=== PATIENT | female | born 1995 | race Caucasian/White ===

== ENCOUNTER 2016-10-17 09:39 | Emergency (ER) | payer OTHER ==
[~2016-10-17] VITALS: Ht 160 cm; Wt 57.6 kg
[2016-10-17] MEDS ORDERED: TYLE325T5 PO (09:50)
[2016-10-17] MEDS ORDERED: CIPR500T89 PO (09:52)
[2016-10-17] MEDS ORDERED: HYDR-3713 PO (09:52)
[2016-10-17] MEDS ORDERED: KETOROLAC 30 MG/ML VIAL (J1885) IV ONE (10:45)
[2016-10-17 10:58] LABS: CONTROL LINE UCG INT CTR LINE PRESENT
[2016-10-17 11:21] LABS: BASO % 0.6 % (0.0-1.0); EOS # 0.2 K/mm3 (0.0-0.50); EOS % 3.1 % (0.0-3.0); LARGE UNSTAINED CELL # 0.1 K/mm3 (0.0-0.4); LYMPH % 11.7 % (24.0-44.0); MEAN CORPUSCULAR HEMOGLOBIN 29.6 pg (27.0-33.0); MEAN CORPUSCULAR HGB CONC 32.2 g/dl (32.0-36.5); MEAN CORPUSCULAR VOLUME 91.8 fl (80.0-96.0); MONO # 0.3 K/mm3 (0.0-0.8); NEUTROPHILS # 6.4 K/mm3 (1.8-7.7); NEUTROPHILS % 79.6 % (36.0-66.0); PLATELET COUNT, AUTOMATED 597 k/mm3 (150-450)
[2016-10-17 11:38] LABS: ALBUMIN 3.6 GM/DL (3.2-5.2); ALBUMIN/GLOBULIN RATIO 0.73 (1.00-1.93); ALKALINE PHOSPHATASE 89 U/L (45-117); ALT/SGPT 23 U/L (12-78); ANION GAP 8 MEQ/L (8-16); AST/SGOT 9 U/L (15-37); BILIRUBIN,DIRECT < 0.1 MG/DL (0.0-0.2); BILIRUBIN,TOTAL 0.2 MG/DL (0.2-1.0); BLOOD UREA NITROGEN 12 MG/DL (7-18); CALCIUM LEVEL 9.2 MG/DL (8.5-10.1); CARBON DIOXIDE LEVEL 27 MEQ/L (21-32); CHLORIDE LEVEL 102 MEQ/L (98-107); CREATININE FOR GFR 0.58 MG/DL (0.55-1.02); GLUCOSE, FASTING 94 MG/DL (70-105); SODIUM LEVEL 137 MEQ/L (136-145); TOTAL PROTEIN 8.5 GM/DL (6.4-8.2)
[2016-10-17] MEDS ORDERED: ISOVUE-370 76% 100ML VIAL (Q9967) As Ordered ONE (12:10)
--- NOTE | 2016-10-17 13:00 | REP ---
CT abdomen and pelvis with IV contrast, without bowel contrast: Comparison is 12/07/2013. The visualized lung jaquez are unremarkable. The hepatic parenchyma, gallbladder, pancreas and spleen are normal size and unremarkable. The adrenals, kidneys and abdominal aorta are unremarkable. There is no bowel distension. The mesentery is unremarkable. Pelvis: The appendix is not distended measuring 6 mm in diameter and is otherwise unremarkable. There is a 4.3 cm right adnexal cyst. There is a 3.0 cm left adnexal cyst. There is no ascites. No pelvic adenopathy. The bladder is unremarkable. The uterus is retroverted but otherwise unremarkable. Impression: The gallbladder and appendix are unremarkable. There is a 4.3 cm right adnexal cyst and 3.0 cm left adnexal cyst. No ascites. The uterus is retroverted. The pancreas and spleen are unremarkable. There is no hydronephrosis. Kidneys are unremarkable. No ascites or adenopathy. No bowel distension. Otherwise, negative CT of the abdomen and pelvis. Signed by Korey García MD 10/17/2016 12:51 P
[2016-10-17 13:21] VITALS: BP 139/65
== END 2016-10-17 13:28 | disposition home or self-care (01) ==
LOC: M ED 10:01
DX: N83.02 Follicular cyst of left ovary (principal); N83.01 Follicular cyst of right ovary
CPT/HCPCS: 74177; 80048; 80076; 81001; 83690; 84703; 85025; 96374; 99282; J1885; Q9967

== ENCOUNTER → 2016-10-26 | Outpatient (CLI) | payer OTHER ==
[~2016-10-26] MED LIST: CIPR500T89 PO; HYDR-3713 PO; TYLE325T5 PO
[2016-10-26 12:32] LABS: PROLACTIN 5.6 NG/ML
[2016-10-26 12:54] LABS: FREE T4 0.94 NG/DL (0.78-1.33)
--- NOTE | 2016-10-27 03:48 | REP ---
Clinical: Right lower quadrant pain . Technique: Transabdominal pelvic ultrasound followed by transvaginal examination for better evaluation of the endometrium and adnexa with color Doppler evaluation of the ovaries. Findings: Bladder is unremarkable and measures 6.5 x 3.7 x 3.5 cm . Normal retroverted uterus measures 6.4 x 3.5 x 4.4 cm . The endometrial complex measures 4.8 mm thickness. No discrete uterine or endometrial abnormalities are appreciated. Bilateral ovaries are normal in appearance and vascularity without evidence for torsion. Right ovary measures 5.1 x 3.2 x 5.0 cm with a 3.3 cm hemorrhagic cyst ; R I = 0.56 . Left ovary measures 4.7 x 2.4 x 2.0 cm with 1.9 cm follicle ; R I = 0.55 . No pelvic fluid or adnexal mass lesions. Impression: 1. Right ovarian hemorrhagic cyst and left ovarian involuting follicle. 2. Normal uterus. Signed by Justin Pino MD 10/27/2016 03:40 A
== END ==
LOC: M RAD 11:26
PROVIDERS: ATTEND Nurse Practitioner Women's Health
DX: N92.6 Irregular menstruation, unspecified (principal)

== ENCOUNTER 2016-12-13 07:05 | Emergency (ER) | payer OTHER ==
[~2016-12-13] VITALS: Ht 160 cm; Wt 58.0 kg
[~2016-12-13 07:05] MED LIST changes: +CIPR-249 PO; -CIPR500T89 PO
[2016-12-13] MEDS ORDERED: MORPHINE 4 MG/ML 1ML SYRINGE IV ONE (08:00)
[2016-12-13] MEDS ORDERED: ONDANSETRON 4MG/2ML VIAL (J2405) IV ONE (08:00)
[2016-12-13] MEDS ORDERED: NS 1,000 ML IV ONE (08:00)
[2016-12-13 08:19] LABS: BASO % 0.3 % (0.0-1.0); EOS # 0.1 K/mm3 (0.0-0.50); EOS % 1.1 % (0.0-3.0); LARGE UNSTAINED CELL # 0.1 K/mm3 (0.0-0.4); LARGE UNSTAINED CELL % 0.7 % (0.0-4.0); LYMPH # 0.7 K/mm3 (1.5-6.5); LYMPH % 5.4 % (24.0-44.0); MEAN CORPUSCULAR HEMOGLOBIN 30.1 pg (27.0-33.0); MEAN CORPUSCULAR HGB CONC 33.5 g/dl (32.0-36.5); MEAN CORPUSCULAR VOLUME 89.9 fl (80.0-96.0); MONO # 0.4 K/mm3 (0.0-0.8); NEUTROPHILS # 10.4 K/mm3 (1.8-7.7); NEUTROPHILS % 89.5 % (36.0-66.0); PLATELET COUNT, AUTOMATED 376 k/mm3 (150-450); RED CELL DISTRIBUTION WIDTH 12.8 % (11.5-14.5); WHITE BLOOD COUNT 11.6 K/mm3 (4.0-10.0)
[2016-12-13 08:33] LABS: CONTROL LINE HCG INT CTR LINE PRESENT
[2016-12-13 08:40] LABS: ALBUMIN 3.8 GM/DL (3.2-5.2); ALBUMIN/GLOBULIN RATIO 0.93 (1.00-1.93); ALKALINE PHOSPHATASE 80 U/L (45-117); ALT/SGPT 14 U/L (12-78); AMYLASE 37 U/L (25-115); ANION GAP 8 MEQ/L (8-16); AST/SGOT 8 U/L (15-37); BILIRUBIN,DIRECT < 0.1 MG/DL (0.0-0.2); BILIRUBIN,TOTAL 0.3 MG/DL (0.2-1.0); BLOOD UREA NITROGEN 7 MG/DL (7-18); CALCIUM LEVEL 9.3 MG/DL (8.5-10.1); CARBON DIOXIDE LEVEL 23 MEQ/L (21-32); CHLORIDE LEVEL 105 MEQ/L (98-107); GLUCOSE, FASTING 123 MG/DL (70-105); POTASSIUM SERUM 3.7 MEQ/L (3.5-5.1); SODIUM LEVEL 136 MEQ/L (136-145); TOTAL PROTEIN 7.9 GM/DL (6.4-8.2)
[2016-12-13] MEDS ORDERED: ISOVUE-370 76% 100ML VIAL (Q9967) As Ordered ONE (09:20)
--- NOTE | 2016-12-13 10:02 | REP ---
CT ABDOMEN AND PELVIS WITH IV CONTRAST: TECHNIQUE: Axial contrast enhanced images from the lung bases to the pubic symphysis using 100 mL Isovue 370 intravenous contrast material with multiplanar reformations. Visualized lung bases are clear. Liver, spleen, adrenals, pancreas and kidneys are normal in appearance. There is no abdominal aortic aneurysm. There is no free air. There is diffuse thickening of the right colon with mild surrounding streaky inflammatory change. There are mildly enlarged lymph nodes just medial to the right colon, the largest 1.3 cm in short axis dimension. The appendix is normal. No pelvic mass is seen. There is mild free fluid in the pelvis. IMPRESSION: Diffuse thickening of the right colon with mild adjacent mesenteric adenopathy. Normal appendix. Mild free fluid in the pelvis. Findings compatible with right sided colitis. Signed by Korey Pendleton MD 12/13/2016 08:17 P
[2016-12-13] MEDS ORDERED: ZOFR4TAB3 PO (10:35)
[2016-12-13] MEDS ORDERED: NORCOTAB PO (10:35)
[2016-12-13] MEDS ORDERED: NORCO, ANEXSIA 5/325MG TABLET (HYDROcodone/ACETAMINOPHEN) PO ONE (10:45)
[2016-12-13 10:46] VITALS: BP 131/66
== END 2016-12-13 10:54 | disposition home or self-care (01) ==
LOC: M ED 08:15
DX: K52.9 Noninfective gastroenteritis and colitis, unspecified (principal); R11.2 Nausea with vomiting, unspecified
CPT/HCPCS: 74177; 80048; 80076; 81001; 82150; 83690; 84703; 85025; 96361; 96374; 96375; 99283; J2405; Q9967

== ENCOUNTER → 2017-09-03 | Outpatient (REF) | payer OTHER ==
[2017-09-03 18:20] LABS: INFLUENZA A AMPLIFICATION POSITIVE (NEGATIVE); INFLUENZA B AMPLIFICATION NEGATIVE (NEGATIVE)
== END ==
LOC: M LAB REF 17:26
DX: J11.1 Influenza due to unidentified influenza virus with other respiratory manifestations (principal)

== ENCOUNTER 2018-08-29 06:33 | Emergency (ER) | payer OTHER ==
[~2018-08-29] VITALS: Ht 160 cm; Wt 59.1 kg
[~2018-08-29 06:33] MED LIST changes: +NORCOTAB PO; +ZOFR4TAB14 PO
[2018-08-29] MEDS ORDERED: KETOROLAC 30 MG/ML VIAL (J1885) As Ordered ONE (06:45)
[2018-08-29] MEDS ORDERED: ONDANSETRON 4MG/2ML VIAL (J2405) As Ordered ONE (06:45)
[2018-08-29 07:00] LABS: BASO # 0.1 10^3/uL (0.0-0.2); BASO % 0.8 % (0.0-1.0); EOS # 0.3 10^3/uL (0.0-0.50); EOS % 1.9 % (0.0-3.0); HEMATOCRIT 39.3 % (36.0-47.0); HEMOGLOBIN 13.3 g/dl (12.0-15.5); LYMPH # 4.3 10^3/uL (1.5-6.5); LYMPH % 32.5 % (24.0-44.0); MEAN CORPUSCULAR HGB CONC 33.8 g/dl (32.0-36.5); MEAN CORPUSCULAR VOLUME 88.7 fl (80.0-96.0); MONO # 0.9 10^3/uL (0.0-0.8); MONO % 6.5 % (0.0-5.0); NEUTROPHILS # 7.7 10^3/uL (1.8-7.7); NEUTROPHILS % 57.4 % (36.0-66.0); PLATELET COUNT, AUTOMATED 494 10^3/uL (150-450); RED BLOOD COUNT 4.43 10^6/uL (4.00-5.40); WHITE BLOOD COUNT 13.3 10^3/uL (4.0-10.0)
[2018-08-29] MEDS ORDERED: ONDANSETRON 4MG/2ML VIAL (J2405) IV ONE (07:00)
[2018-08-29] MEDS ORDERED: KETOROLAC 30 MG/ML VIAL (J1885) IV ONE (07:00)
[2018-08-29] MEDS ORDERED: MORPHINE 2 MG/ML 1ML SYRINGE (J2270) IV ONE (08:00)
[2018-08-29 08:07] LABS: ALT/SGPT 25 U/L (12-78); BILIRUBIN,DIRECT 0.1 MG/DL (0.0-0.2); BILIRUBIN,TOTAL 0.3 MG/DL (0.2-1.0); BLOOD UREA NITROGEN 12 MG/DL (7-18); CALCIUM LEVEL 8.9 MG/DL (8.5-10.1); CARBON DIOXIDE LEVEL 20 MEQ/L (21-32); CHLORIDE LEVEL 109 MEQ/L (98-107); CREATININE FOR GFR 0.79 MG/DL (0.55-1.30); GLOMERULAR FILTRATION RATE > 60.0 (>60); GLUCOSE, FASTING 117 MG/DL (70-100); HCG, SERUM QUALITATIVE NEGATIVE (NEGATIVE); LIPASE 121 U/L (73-393); POTASSIUM SERUM 4.1 MEQ/L (3.5-5.1); SODIUM LEVEL 141 MEQ/L (136-145); TOTAL PROTEIN 7.3 GM/DL (6.4-8.2)
--- NOTE | 2018-08-29 08:45 | REP ---
CT of the abdomen pelvis without IV or bowel contrast for right renal colic: Comparison is 12/13/2016. There is right hydronephrosis and hydroureter. I suspect a faintly visible 4 mm calculus at the distal tip of the right ureter at the UVJ. This could be confirmed with a follow-up CT urogram. There are no right renal calculi. There is a single nonobstructive 5 mm left renal calculus. There is no perinephric stranding on the right or the left. There are two phleboliths in the pelvis on the right, unchanged from the prior study. The visualized lung jaquez are unremarkable. The unenhanced hepatic parenchyma, gallbladder, pancreas, spleen and adrenals are unremarkable. The abdominal aorta is unremarkable. The bowel and mesentery are unremarkable. Pelvis: The appendix is unremarkable. There is no ascites or adenopathy. The uterus, adnexa and bladder are unremarkable. Impression: Probable faintly visible calculus in the distal right ureter at the right UVJ with right hydronephrosis and hydroureter. This could be confirmed with a CT urogram if felt clinically indicated. Additionally, there are two 2 phleboliths in the pelvis on the right, unchanged from the comparison study. Electronically Signed by Korey García MD 08/29/2018 08:36 A
[2018-08-29] MEDS ORDERED: NORCOTAB PO (09:09)
[2018-08-29] MEDS ORDERED: FLOM0.4C39 PO (09:09)
[2018-08-29] MEDS ORDERED: ONDA4TAB6 PO (09:09)
[2018-08-29] MEDS ORDERED: TAMSULOSIN 0.4 MG CAP PO ONE (09:15)
[2018-08-29 09:55] VITALS: BP 121/58
== END 2018-08-29 09:58 | disposition home or self-care (01) ==
LOC: M ED 06:33
DX: N21.1 Calculus in urethra (principal)
CPT/HCPCS: 74176; 80048; 80076; 81001; 83690; 84703; 85025; 96374; 96375; 99284; J1885; J2270; J2405

== ENCOUNTER → 2019-06-01 | Outpatient (REF) | payer OTHER ==
[~2019-06-01] MED LIST changes: +FLOM0.4C39 PO; +HYDR-3715 PO; -NORCOTAB PO; +ONDA4TAB6 PO
[2019-06-01 18:05] LABS: INFLUENZA A AMPLIFICATION NEGATIVE (NEGATIVE); INFLUENZA B AMPLIFICATION POSITIVE (NEGATIVE)
== END ==
LOC: M LAB REF 16:59
PROVIDERS: ATTEND Physician Assistant Medical
DX: Z11.59 Encounter for screening for other viral diseases (principal)

== ENCOUNTER → 2020-05-28 | Outpatient (REF) | payer OTHER | LOC: M LAB REF 19:35 | PROVIDERS: ATTEND Physician Assistant | DX: R50.9 Fever, unspecified (principal); R05 Cough ==

== ENCOUNTER → 2021-02-11 | Outpatient (REF) | payer OTHER | LOC: M LAB REF 15:34 | PROVIDERS: ATTEND Physician Assistant | DX: R05 Cough (principal) ==

== ENCOUNTER → 2022-04-05 | Outpatient (REF) | payer OTHER | LOC: M SFHCWAGY 17:03 | PROVIDERS: ATTEND Nurse Practitioner Family | DX: Z12.4 Encounter for screening for malignant neoplasm of cervix (principal) | CPT/HCPCS: 87624; G0123 ==

== ENCOUNTER 2022-06-08 04:02 | Emergency (ER) | payer OTHER ==
[~2022-06-08] VITALS: Ht 160 cm; Wt 56.8 kg
[2022-06-08 04:38] LABS: BASO # 0.1 10^3/uL (0.0-0.2); BASO % 0.6 % (0.0-1.0); EOS # 0.1 10^3/uL (0.0-0.5); EOS % 0.9 % (0.0-3.0); HEMATOCRIT 41.1 % (36.0-47.0); HEMOGLOBIN 13.7 g/dl (12.0-15.5); LYMPH # 2.4 10^3/uL (1.5-5.0); LYMPH % 16.8 % (24.0-44.0); MEAN CORPUSCULAR HEMOGLOBIN 30.6 pg (27.0-33.0); MEAN CORPUSCULAR HGB CONC 33.3 g/dl (32.0-36.5); MEAN CORPUSCULAR VOLUME 91.9 fl (80.0-96.0); MONO # 0.7 10^3/uL (0.0-0.8); MONO % 4.9 % (2.0-8.0); NEUTROPHILS # 10.7 10^3/uL (1.5-8.5); PLATELET COUNT, AUTOMATED 423 10^3/uL (150-450); RED BLOOD COUNT 4.47 10^6/uL (4.00-5.40); WHITE BLOOD COUNT 14.1 10^3/uL (4.0-10.0)
[2022-06-08] MEDS ORDERED: ONDANSETRON 4MG 2ML VIAL IV ONE (04:40)
[2022-06-08] MEDS ORDERED: KETOROLAC 30 MG/ML 1ML VIAL IV ONE (04:40)
[2022-06-08 04:54] LABS: LIPASE 32 U/L (12-53)
[2022-06-08 04:56] LABS: ALBUMIN 4.2 G/DL (3.2-5.2); ALKALINE PHOSPHATASE 72 U/L (46-116); ALT/SGPT 18 U/L (7.0-40); AST/SGOT 16 U/L (<34); BILIRUBIN,DIRECT < 0.1 MG/DL (<0.4); BILIRUBIN,TOTAL 0.3 MG/DL (0.3-1.2); TOTAL PROTEIN 7.2 G/DL (5.7-8.2)
[2022-06-08 09:39] LABS: GC DNA AMPLIFICATION NEGATIVE (NEGATIVE)
[2022-06-08 10:26] VITALS: BP 126/70
== END 2022-06-08 10:32 | disposition left against medical advice (07) ==
LOC: M ED 04:02
DX: N83.01 Follicular cyst of right ovary (principal); Z53.20 Procedure and treatment not carried out because of patient's decision for unspecified reasons; Z79.899 Other long term (current) drug therapy
CPT/HCPCS: 76830; 76856; 80047; 80076; 81000; 83690; 84702; 85025; 87088; 87186; 87661; 87810; 87850; 93041; 93976; 96374; 96375; 99284; J1885; J2405

== ENCOUNTER → 2023-07-11 | Outpatient (REF) | payer OTHER | LOC: M LAB REF 16:05 | PROVIDERS: ATTEND Physician Assistant Medical | DX: B34.9 Viral infection, unspecified (principal) ==

== ENCOUNTER → 2023-12-26 | Outpatient (REF) | payer OTHER ==
[~2023-12-26] MED LIST changes: +ONDA-282 PO; -ONDA4TAB6 PO
== END ==
LOC: M SFHCWAGY 12:27
PROVIDERS: ATTEND Nurse Practitioner Family
DX: R39.15 Urgency of urination (principal)